=== PATIENT | male | born 1995 ===

== ENCOUNTER 2022-09-02 00:39 | Emergency (ER) | payer SELFPAY ==
[~2022-09-02] VITALS: Ht 163 cm; Wt 59.0 kg
[2022-09-02 00:49] VITALS: BP 149/77
[2022-09-02] MEDS ORDERED: TETRACAINE 0.5% OPHTH SOLN 4 ML BTL (SINGLE DOSE ONLY) OU ONE (01:00)
[2022-09-02] MEDS ORDERED: FLUORESCEIN (FLUOR-I-STRIPS) 1 MG STRP OU ONE (01:00)
[2022-09-02] MEDS: BSS 15 ML IR ONE ×2 (01:01→01:05)
--- NOTE | 2022-09-02 01:07 | ED EENT ---
History of Present Illness General Chief Complaint: Foreign Body Stated Complaint: POSS F O IN RT EYE Nursing Triage Note: c/o right upper eye pain, possible f.b. reports pain since 08/31/22 while cutting wood. 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 HE HAS BEEN FLUSHING EYE, AND YESTERDAY HE DID GET A PIECE OF SOMETHING OUT OF HIS EYE. BUT PAIN CONTINUES. PAIN IS WORST ON THE INSIDE OF HIS UPPER EYELID NO PURULENT DRAINAGE, BUT EYE CONTINUES TO WATER. VISION IS BLURRY IN RIGHT EYE DOES NOT WEAR GLASSES OR CONTACTS NO PRIOR PROBLEMS WITH EYES. HAS NEVER BEEN TO AN EYE DR. PCP: NONE Allergies and Home Medications Allergies Coded Allergies: No Known Drug Allergies (Unverified , 09/02/22) Patient Home Medication List Home Medication List Reviewed: Yes No Active Prescriptions or Reported Meds Review of Systems Review of Systems Constitutional: no symptoms reported Eyes: See HPI Neurological: No Symptoms Reported Past [id number]-[id number] Hx Patient Social History Tobacco Use?: No Substance use?: No Pt feels they are or have been: No Immunizations Up To Date Tetanus Booster (TDap): Unknown First/Initial COVID19 Vaccinat: na Past Medical History Surgery/Hospitalization HX: denies Surgeries: No Respiratory: No Cardiac: No Neurological: No Genitourinary: No Gastrointestinal: No Musculoskeletal: No Endocrine: No HEENT: No Cancer: No Psychosocial: No Integumentary: No Blood Disorders: No Physical Exam Vital Signs Vital Signs - First Documented 09/02/22 00:49 Temp 35.9 Pulse 86 Resp 16 B/P (MAP) 149/77 (101) Pulse Ox 99 O2 Delivery Room Air Height, Weight, BMI Height: '" Weight: lbs. oz. kg; 22.00 BMI Method: General Appearance: WD/WN, no apparent distress Eyes: right eye conjunctival inflammation, right eye other (RIGHT CORNEA WITH SMALL DYE UPTAKE AROUND 9:00 ON CORNEA. INNER ASPECT OF RIGHT UPPER EYELID WITH AREA OF INFLAMMATION, BUT NO VISIBLE FOREIGN BODY NOTED. NO FOREIGN BODY NOTED TO CORNEA. NO HYPHEMA); left eye normal inspection; bilateral eye PERRL, bilateral eye EOMI Neurologic/Psychiatric: park maintainer II-XII nml as tested Skin: normal color (PT IS ), warm/dry Procedures/Interventions Eye : Location: right eye Anesthesia (gtts): Tetracaine Progress/Procedure Conclusion FLUORESCEIN STAIN SMALL AREA OF DYE UPTAKE AT 9:00 ON RIGHT CORNEA NO FOREIGN BODY INNER ASPECT OF RIGHT UPPER EYELID WITH AREA OF INFLAMMATION. NO FOREIGN BODY NOTED IN THIS AREA. Progress/Results/Core Measures Results/Orders My Orders Orders - GIOVANNA ERAZO DO Tetracaine 0.5% Ophth Leonora Sdv (Tetracai (09/02/22 01:00) Fluorescein Strips ([id number]) (09/02/22 01:00) Balanced Salt Irrigation Soln (Bss Irrig (09/02/22 01:00) Rx-Besifloxacin 0.6% Ophth Jolie (Rx-Besiv (09/02/22 09:00) Rx-Besifloxacin 0.6% Ophth Jolie (Rx-Besiv (09/02/22 01:10) Medications Given in ED Current Medications Medications Dose Ordered Sig/Jon Route Start Time Stop Time Status Last Admin Dose Admin Fluorescein Sodium 1 mg ONCE ONCE OU 09/02/22 01:00 09/02/22 01:01 DC 09/02/22 01:01 1 MG Tetracaine HCl 4 ml ONCE ONCE OU 09/02/22 01:00 09/02/22 01:01 DC 09/02/22 01:01 4 ML Vital Signs/I&O 09/02/22 00:49 Temp 35.9 Pulse 86 Resp 16 B/P (MAP) 149/77 (101) Pulse Ox 99 O2 Delivery Room Air Blood Pressure Mean: 101 Departure Impression Primary Impression: Right corneal abrasion Disposition: HOME, SELF-CARE Condition: Stable Departure-Patient Inst. Decision time for Depature: 01:06 Referrals: MADELAINE KHAN OD NO,LOCAL PHYSICIAN (PCP) Primary Care Physician Patient Instructions: Corneal Abrasion ED Add. Discharge Instructions: DO NOT RUB EYE USE EYE DROPS THREE TIMES A DAY TYLENOL 1 GRAM PLUS MOTRIN 800 MG 4 TIMES A DAY FOR PAIN FOLLOW UP WITH DR. KHAN'S OFFICE TOMORROW FOR FURTHER CARE--CALL IN THE MORNING TO SCHEDULE APPOINTMENT All discharge instructions reviewed with patient and/or family. Voiced understanding. Scripts No Active Prescriptions or Reported Meds GIOVANNA ERAZO DO Sep 02, 2022 01:07
[2022-09-02] MEDS ORDERED: RX-BESIFLOXACIN (BESIVANCE) 0.6% OPHTH SUSP 5 ML ONE (01:10)
[2022-09-02] MEDS ORDERED: RX-BESIFLOXACIN (BESIVANCE) 0.6% OPHTH SUSP 5 ML OP SCH (09:00)
== END 2022-09-02 01:13 | disposition home or self-care (01) ==
LOC: ER 00:47
DX: S05.01XA Injury of conjunctiva and corneal abrasion without foreign body, right eye, initial encounter (principal); Z28.310 Unvaccinated for COVID-19; W45.8XXA Other foreign body or object entering through skin, initial encounter; Y93.89 Activity, other specified
CPT/HCPCS: 99281